=== PATIENT | male | born 1980 | race Caucasian/White ===

== ENCOUNTER 2020-03-06 10:00 | Emergency (ER) | payer SELFPAY ==
[~2020-03-06] VITALS: Ht 170.2 cm; Wt 70.8 kg
[2020-03-06 10:03] VITALS: BP 143/87
--- NOTE | 2020-03-06 10:06 | NUR ---
PT AMBULATED TO ER BED 04
--- NOTE | 2020-03-06 10:10 | NUR ---
C/O R NECK PAIN/LUMP X2 MONTHS. PT STATES IT IS TYPICALLY RELIEVED BY ICE/IBUPROFEN BUT TODAY HE FELT A "POP". PT DENIES RECENT INJURY TO NECK. DENIES NUMBNESS/TINGLING TO EXTREMETIES. NO OBVIOUS DEFORMITY NOTED. BED IN LOW POSITION, SIDE RAIL UP X1. PT DECLINED OFFER FOR ICE PACK.
--- NOTE | 2020-03-06 10:12 | NUR ---
DR. ROUSSEAU EVALUATING PT AT BEDSIDE
--- NOTE | 2020-03-06 10:18 | NUR ---
PT LEFT TO CT VIA WHEELCHAIR
--- NOTE | 2020-03-06 10:28 | NUR ---
PT RETURNED FROM CT VIA WHEELCHAIR
[2020-03-06 11:37] VITALS: BP 143/87
--- NOTE | 2020-03-06 11:38 | NUR ---
Patient discharged with v/s stable. Written and verbal after care instructions given and explained. Patient alert, oriented and verbalized understanding of instructions. Carried with steady gait. All questions addressed prior to discharge. ID band removed. Patient advised to follow up with PMD. Rx of IBUPROFEN given. Patient educated on indication of medication including possible reaction and side effects. Opportunity to ask questions provided and answered.
== END 2020-03-06 11:38 | disposition home or self-care (01) ==
LOC: MED 10:00
DX: R59.0 Localized enlarged lymph nodes (principal); R03.0 Elevated blood-pressure reading, without diagnosis of hypertension
CPT/HCPCS: 70490; 99284

== ENCOUNTER 2024-01-15 13:44 | Emergency (ER) | payer SELFPAY ==
[~2024-01-15] VITALS: Ht 165.1 cm; Wt 80.3 kg
[2024-01-15 13:48] VITALS: BP 122/83; PULSE 87; RESP 18; TEMP 97.5; O2SAT 98
[2024-01-15 14:00] VITALS: BP 122/83; PULSE 87; RESP 18; TEMP 97.5; O2SAT 98
== END 2024-01-15 15:51 | disposition home or self-care (01) ==
LOC: MED 13:44
DX: S01.01XA Laceration without foreign body of scalp, initial encounter (principal); Y04.0XXA Assault by unarmed brawl or fight, initial encounter; Y93.89 Activity, other specified; Y92.89 Other specified places as the place of occurrence of the external cause; Y99.8 Other external cause status
CPT/HCPCS: 70450; 99284

== ENCOUNTER 2024-01-25 12:35 | Emergency (ER) | payer SELFPAY ==
[~2024-01-25] VITALS: Ht 167.6 cm; Wt 81.2 kg
[2024-01-25 12:56] VITALS: BP 113/77; PULSE 7; PULSE 76; RESP 17; TEMP 97.9; O2SAT 98
== END 2024-01-25 13:41 | disposition home or self-care (01) ==
LOC: MED 12:35
DX: S01.01XD Laceration without foreign body of scalp, subsequent encounter (principal); Z48.02 Encounter for removal of sutures; Y04.8XXD Assault by other bodily force, subsequent encounter
CPT/HCPCS: 99281